=== PATIENT | male | born 1990 | race Caucasian/White ===

== ENCOUNTER 2019-01-15 13:13 | Outpatient (RCR) | payer OTHER, SELFPAY ==
--- NOTE | 2019-01-15 16:03 | OT.OP.EVAL ---
Visit Care Team Role Provider Type Cecil Varela CNP Primary Care Provider Non-Staff Specialty: Medical Address: [address] [place] [address], [place], [address] Email: Mariama Colin Attending Provider Non-Staff Specialty: Medical Address: [address] [place] [address], [address], [place], [id number] Fax: Email: Occupational Therapy Initial Evaluation OT Outpatient Adult Evaluation Start: 01/15/19 15:37 Freq: Status: Active Protocol: Document 01/15/19 15:37 AMS (Rec: 01/15/19 16:03 AMS [email or web address]) General Information Visit Start Time 13:30 Visit Stop Time 14:18 Total Visit Minutes 48 Plan of Care Dates 01/15/19 - Evaluation Only Insurance Information Treatment Setting Outpatient Care Note Type Initial Evaluation Referring Physician Mariama Colin MD Reason for Referral Bilateral hand pain w/ swelling in the evenings to DIP and PIP joints Identification Confirmed Yes: Photo ID Patient Concerns Pain/discomfort in hands Medical History Health History form was completed by patient and placed in paper chart; significant for blood pressure ; depression; headaches; hearing problems; jaw pain; anxiety; eczema of hands during cold months of the year ; and possible arthritis. Patient verbally reported that his doctor has provided him with bilateral wrist splints to utilize at work to address ulnar sided wrist pain/ discomfort. Previous Therapy/Therapies No: re: fingers/thumb Therapy Pain Assessment When Pain Assessed pre-treat Pain Present Pain Reported Lower Back Intensity 4 Scale Used Numeric (1 - 10) Right Foot Intensity 4 Scale Used Numeric (1 - 10) Right Hip Intensity 4 Scale Used Numeric (1 - 10) Left Finger Intensity 9 Scale Used thumb Finger Intensity 7 Scale Used Numeric (1 - 10) Goals Objective Measurements (+) B intrinsic tightness. (+) report of clenching fists at night. Decreased stabilization of L thumb DIP joint noted w/ resisted thumb palmar abd/add ; decreased L thumb strength w / palmar abd/add compared to R thumb. Slight hyperextension noted at R second PIP coupled w/ DIP flex. Decreased awareness of joint protection principles. Treatment Instructed in strengthening of L thumb w/ palmar abd/add w/ progression from 1 rubberband -> 2 rubberbands to utilization of provided medium firm green theraputty. Recommended 3 sets of 10 reps every other day and positioning resistance distal to DIP joint. Recommended avoiding pain w/ execution of exercises. Instructed in hook tendon gliding exercise, as well as basic joint protection principles relative to avoiding sustained positions/ positions of deformity. Recommended use of night splints as needed to avoid flexed positioning of digits. Discussed use of heat to address mobility. Patient denied questions. Assessment/Plan Patient Response Good Rehabilitation Potential Good Impairments Identified Coordination/Dexterity, Flexibility,Pain,Weakness, Recreational Activities, Meaningful Activities, Stiffness Treatment Assessment Patient is a right hand dominant 28 year-old male who was referred to outpatient OT by PCP secondary to bilateral hand pain w/ swelling in the evenings to the PIP and DIP joints. Health History form was completed by patient and placed in paper chart; significant for blood pressure ; depression; headaches; hearing problems; jaw pain; anxiety; eczema of hands during cold months of the year ; and possible arthritis. Patient verbally reported that his doctor has provided him with bilateral wrist splints to utilize at work to address ulnar sided wrist pain/ discomfort. Evaluation findings: Hand pain/discomfort s/p work; (+) B intrinsic tightness; (+) report of clenching fists at night; decreased stabilization of L thumb DIP joint noted w/ resisted thumb palmar abd/add ; decreased L thumb strength w / palmar abd/add compared to R thumb; slight hyperextension noted at R second PIP coupled w/ DIP flex; decreased awareness of joint protection principles; use of bilateral splints at work to support bilateral ulnar sides of wrists/hands as prescribed by PCP. Patient was instructed in home exercise program and denied need for additional visits. Thus, continued outpatient therapy is not needed at this time. Recommend d/c paperwork be completed at this time. Home Exercise Program Please refer to treatment section of note for specific details. Comment Evaluation only - N/A Therapeutic Contents Active Range of Motion, Education,Therapeutic Activities,Therapeutic Exercises Patient Instruction Home Exercise Program,Plan of Care,Questions/Concerns Patient Recommendations Discharge from Occupational Therapy
== END 2019-03-21 13:47 ==
LOC: OT 13:13
PROVIDERS: PCP Registered Nurse Diabetes Educator; Visit Provider Nurse Practitioner Family
DX: M79.643 Pain in unspecified hand (principal); M79.645 Pain in left finger(s)
CPT/HCPCS: 97110; 97165